=== PATIENT | female | born 1980 | race Hispanic/Latino ===

== ENCOUNTER 2016-09-02 13:36 | Emergency (ER) | payer BC ==
[2016-09-02 13:41] VITALS: TEMP 98; BMI 42.9
--- NOTE | 2016-09-02 14:09 | ED PDOC ---
Arrival/HPI - General Chief Complaint: Anxiety Time Seen by Provider: 09/02/16 13:44 Historian: Patient - History of Present Illness Narrative History of Present Illness (Text): 09/02/16 13:59 36 year old female whose past medical history includes Celiac's disease and recurrent panic attacks, on Ativan, presents to the emergency department complaining of panic attack. Patient states she has had panic attacks for the past 10 years and reports multiple hospital visits. Today she reports she was sitting on the computer playing a game when the attack began. She reports associated symtpoms of shortness of breath. Patient states she recently moved here from [place] six months ago. Denies other complaints. PMD: Dr. Hanson ([place]) Time/Duration: Prior to Arrival Symptom Onset: Sudden Symptom Course: Unchanged Associated Symptoms (Text): shortness of breath Past Medical History - Provider Review Nursing Documentation Reviewed: Yes - Infectious Disease Hx of Infectious Diseases: None - Pulmonary Hx Asthma: Yes - Neurological Hx Migraine: Yes - Psychiatric Hx Substance Use: No Family/Social History - Physician Review Nursing Documentation Reviewed: Yes Family/Social History: Unknown Family HX Smoking Status: Never Smoked Hx Alcohol Use: No Hx Substance Use: No Allergies/Home Meds Allergies/Adverse Reactions: Allergies iodine Allergy (Verified 09/02/16 13:46) ANAPHYLAXIS Home Medications: Home Meds Medication Instructions Recorded Confirmed Ativan 1 mg PO PRN PRN 09/02/16 09/02/16 Review of Systems - Physician Review All systems were reviewed & negative as marked: Yes - Review of Systems Eyes: absent: Vision Changes Respiratory: SOB Gastrointestinal: absent: Abdominal Pain Psychiatric: Anxiety. absent: Suicidal Ideation Physical Exam Vital Signs Reviewed: Yes Vital Signs Temp Pulse Resp BP Pulse Ox 09/02/16 13:39 98.0 F 111 H 18 143/95 H 99 Temperature: Afebrile Blood Pressure: Normal Pulse: Tachycardic Respiratory Rate: Normal Appearance: Positive for: Well-Appearing, Non-Toxic, Other (Anxious appearing) Pain Distress: None Mental Status: Positive for: Alert and Oriented X 3 - Systems Exam Head: Present: Atraumatic, Normocephalic Pupils: Present: PERRL Extroacular Muscles: Present: EOMI Conjunctiva: Present: Normal Mouth: Present: Moist Mucous Membranes Neck: Present: Normal Range of Motion Respiratory/Chest: Present: Clear to Auscultation, Good Air Exchange. No: Respiratory Distress, Accessory Muscle Use Cardiovascular: Present: Regular Rate and Rhythm, Normal S1, S2. No: Murmurs Abdomen: Present: Normal Bowel Sounds. No: Tenderness, Distention, Peritoneal Signs Back: Present: Normal Inspection Upper Extremity: Present: Normal Inspection. No: Cyanosis, Edema Lower Extremity: Present: Normal Inspection. No: Edema Neurological: Present: GCS=15, CN II-XII Intact, Speech Normal Skin: Present: Warm, Dry, Normal Color. No: Rashes Psychiatric: Present: Alert, Oriented x 3, Normal Concentration, Anxious Medical Decision Making ED Course and Treatment: EKG: Ordered, reviewed, and independently interpreted the EKG. Rate : 94 BPM Rhythm : NSR Interpretation : Normal axis, No STEMI 09/02/16 17:02 pt cleared by psych. she is requesting to be dc at this time. - Scribe Statement The provider has reviewed the documentation as recorded by the Alvarez Matt Provider Scribe Attestation: All medical record entries made by the Alvarez were at my direction and personally dictated by me. I have reviewed the chart and agree that the record accurately reflects my personal performance of the history, physical exam, medical decision making, and the department course for this patient. I have also personally directed, reviewed, and agree with the discharge instructions and disposition. Disposition/Present on Arrival - Present on Arrival Any Indicators Present on Arrival: No History of DVT/PE: No History of Uncontrolled Diabetes: No Urinary Catheter: No History of Decub. Ulcer: No History Surgical Site Infection Following: None - Disposition Have Diagnosis and Disposition been Completed?: Yes Diagnosis: Anxiety Disposition: HOME/ ROUTINE Disposition Time: 17:02 Condition: IMPROVED
[2016-09-02 17:38] VITALS: BP 130/96; RESP 16
[2016-09-02 17:41] VITALS: PULSE 67; O2SAT 98
--- NOTE | 2016-09-02 23:35 | CARD ---
APPROVED REPORT EKG Measurement Heart [id number] <Conclusion> Normal sinus rhythm RSR' or QR pattern in V1 suggests right ventricular conduction delay Nonspecific T wave abnormality Abnormal ECG
== END 2016-09-02 17:10 | disposition home or self-care (01) ==
LOC: ED 13:36
DX: F41.9 Anxiety disorder, unspecified (principal)